=== PATIENT | male | born 1985 | race Two or more races ===

== ENCOUNTER 2020-11-02 00:30 | Emergency (ER) | payer SELFPAY ==
[~2020-11-02] VITALS: Ht 172.7 cm; Wt 79.4 kg
[2020-11-02 04:45] VITALS: BP 149/92
== END 2020-11-02 05:32 | disposition home or self-care (01) ==
LOC: ER 00:30
DX: F41.9 Anxiety disorder, unspecified (principal); F15.10 Other stimulant abuse, uncomplicated; F32.9 Major depressive disorder, single episode, unspecified

== ENCOUNTER 2021-07-08 13:39 | Emergency (ER) | payer SELFPAY ==
[~2021-07-08] VITALS: Ht 172.7 cm; Wt 72.6 kg
[2021-07-08 13:56] VITALS: BP 150/102
[2021-07-08 15:02] LABS: Urine Bacteria None Seen /hpf (None Seen)
[2021-07-08 15:33] LABS: Urine Blood Normal /uL (Negative); Urine Specific Gravity 1.039 (1.001-1.035)
[2021-07-08 16:04] LABS: Basophils # (auto) 0.1 10 ^3/uL (0-0.2); Basophils % (auto) 0.8 % (0.0-2.0); Eosinophils # (auto) 0.2 10 ^3/uL (0-0.8); Eosinophils % (auto) 1.9 % (0.0-7.0); Hematocrit 47.8 % (41.0-53.0); Hemoglobin 16.6 g/dL (13.5-17.5); Lymphocytes # (auto) 2.5 10 ^3/uL (0.4-5.4); Lymphocytes % (auto) 28.6 % (10.0-50.0); Mean Corpuscular Hemoglobin 31.5 pg (28.0-32.0); Mean Corpuscular Hgb Conc. 34.8 g/dL (32.0-36.0); Mean Corpuscular Volume 90.5 fL (80.0-100.0); Monocytes # (auto) 0.5 10 ^3/uL (0-1.3); Monocytes % (auto) 6.1 % (0.0-12.0); Neutrophils # (auto) 5.5 10 ^3/uL (1.6-8.6); Neutrophils % (auto) 62.6 % (37.0-80.0); Nucleated Red Blood Cells % 0.2 %; Red Blood Cells 5.29 10^6/uL (4.5-5.90); Red Cell Distribution Width 13.3 % (11.8-14.3); White Blood Cell 8.8 10^3/uL (4.4-10.8)
[2021-07-08 16:24] LABS: Albumin 4.2 g/dL (3.4-5.0); Calcium 9.4 mg/dL (8.5-10.1); Potassium 3.5 mmol/L (3.5-5.1)
[2021-07-08 16:26] LABS: BUN/Creatinine Ratio 8.1
[2021-07-08 16:28] LABS: Urine Amorphous Crystal RARE /hpf (None Seen); Urine Mucus RARE (None Seen)
[2021-07-08 16:28] LABS: Bilirubin, Total 0.7 mg/dL (0.2-1.0); Total Protein 7.4 g/dL (6.4-8.2)
== END 2021-07-08 17:37 | disposition home or self-care (01) ==
LOC: ER 13:39
DX: K59.00 Constipation, unspecified (principal)
CPT/HCPCS: 36415; 74176; 80053; 81001; 84484; 85025

== ENCOUNTER 2021-11-16 19:22 | Emergency (ER) | payer SELFPAY | END 2021-11-16 21:00 | disposition left against medical advice (07) | LOC: ER 19:22 | DX: Z00.00 Encounter for general adult medical examination without abnormal findings (principal); Z53.21 Procedure and treatment not carried out due to patient leaving prior to being seen by health care provider ==

== ENCOUNTER 2023-06-01 14:02 | Emergency (ER) | payer MEDICAID, OTHER ==
[~2023-06-01] VITALS: Ht 172.7 cm; Wt 74.3 kg
[2023-06-01 14:13] VITALS: BP 133/103; PULSE 117; RESP 20; O2SAT 99
== END 2023-06-01 19:32 | disposition left against medical advice (07) ==
LOC: ER 14:02
DX: M54.9 Dorsalgia, unspecified (principal); Z53.21 Procedure and treatment not carried out due to patient leaving prior to being seen by health care provider